=== PATIENT | female | born 1990 | race African-American/Black ===

== ENCOUNTER 2021-04-25 15:05 | Emergency (ER) | payer MEDICAID ==
[~2021-04-25] VITALS: Ht 162.6 cm; Wt 93.0 kg
[2021-04-25 15:18] VITALS: BP 135/106
[2021-04-25] MEDS ORDERED: HYDROcodone/APAP 5/325 MG 1 TAB TAB PO ONE (15:55)
--- NOTE | 2021-04-25 16:02 | NUR ---
30 Y/O FEMALE C/O WORSENING LOW BACK PAIN X 4 DAYS. PT STATES 8/10, THROBBING, AGGRAVATED BY CHANGE IN POSITION. NO RX TAKEN. DENIES TRAUMA OR INJURY TO AREA. DENIES URINARY SYMPTOMS, ABDOMINAL PAIN. DENIES PMH ALLERGIES: PCN, ASPIRIN, IBUPROFEN
[2021-04-25] MEDS ORDERED: DIAZ5TAB7 PO (16:54)
[2021-04-25] MEDS ORDERED: ACET-10509 PO (16:54)
[2021-04-25 17:16] VITALS: BP 130/99
--- NOTE | 2021-04-25 17:21 | NUR ---
Patient discharged with v/s stable. Written and verbal after care instructions given and explained. Patient alert, oriented and verbalized understanding of instructions. Ambulatory with steady gait. All questions addressed prior to discharge. ID band removed. Patient advised to follow up with PMD. Rx of TYLENOL EXTRA,VALIUM given. Patient educated on indication of medication including possible reaction and side effects. Opportunity to ask questions provided and answered.
== END 2021-04-25 17:10 | disposition home or self-care (01) ==
LOC: MED 15:05
DX: M54.50 Low back pain, unspecified (principal); Z88.0 Allergy status to penicillin; Z88.6 Allergy status to analgesic agent; Z79.899 Other long term (current) drug therapy
CPT/HCPCS: 72100; 81002; 81025; 99283